=== PATIENT | female | born 1950 | race Caucasian/White ===

== ENCOUNTER 2018-05-29 10:01 | Outpatient (CLI) | payer OTHER ==
--- NOTE | 2018-05-29 11:25 | US ---
EXAM: Nonvascular ultrasound of the left lower extremity. History: Left groin palpable abnormality. Technique: Multiple sonographic images of the left groin were obtained. Color duplex Doppler was use d to interrogate vascular flow. Findings: No masses, cysts or fluid collections are identified. No obvious hernias. Impression: No sonographic abnormality
== END 2018-05-29 10:02 | disposition home or self-care (01) ==
LOC: RAD 10:01
PROVIDERS: ATTEND Nurse Practitioner
DX: R19.09 Other intra-abdominal and pelvic swelling, mass and lump (principal)
CPT/HCPCS: 76882